=== PATIENT | male | born 1965 | race Caucasian/White ===

== ENCOUNTER 2017-04-02 08:01 | Emergency (ER) | payer OTHER ==
[2017-04-02 08:12] VITALS: TEMP 97.4; O2SAT 98
[2017-04-02] MEDS ORDERED: IBUPROFEN 200 MG TAB PO ONE (08:22)
[2017-04-02] MEDS ORDERED: SULFA/TRIMETH 800/160 (DS) TAB 1 EA TAB PO ONE (08:22)
--- NOTE | 2017-04-02 08:25 | ED.PDOC ---
History of Present Illness - General Chief Complaint: General Stated Complaint: needs medical release to go to senior living d/t wound Time Seen by Provider: 04/02/17 08:10 Source: patient Exam Limitations: no limitations - History of Present Illness Initial Comments: PT REPORTS TO ED FROM [facility]ILL[facility]URSING FOR MEDICAL CLEARANCE DUE TO RIGHT FOOT WOUND. PT REPORTS INJURING HIS RIGHT FOOT 3 WEEKS AGO AFTER DROPPING A TIRE ON HIS FOOT. PT REPORTS THAT HE SOUGHT MEDICAL ATTENTION BUT NOTHING WAS PRESCRIBED. SINCE THEN WOUND HAS FAILED TO HEAL. PT ALSO COMPLAINS OF ITCHY RASH ON TORSO AND EXTREMITIES FOR THE PAST WEEK THAT HAS NOT RESPONDED TO OTC HYDROCORTISONE CREAM. Timing/Duration: other - 3 WEEKS Severity: moderate Improving Factors: nothing Worsening Factors: nothing Associated Symptoms: rash Allergies/Adverse Reactions: Allergies Tetracycline Allergy (Verified 04/02/17 08:09) dimatap Allergy (Uncoded 04/02/17 08:09) Home Medications: Ambulatory Orders Methylprednisolone [Medrol Dose Husam] 4 mg PO DAILY #1 pack 04/02/17 Sulfamethoxazole-Trimethoprim [Bactrim Ds 800-160 mg] 2 tab PO BID 10 Days #40 tab 04/02/17 Review of Systems - Review of Systems Constitutional: Denies: chills, fever, malaise EENTM: Denies: nose congestion, throat pain Respiratory: Denies: cough, short of breath Cardiology: Denies: chest pain, palpitations Gastrointestinal/Abdominal: Denies: diarrhea, nausea, vomiting Genitourinary: Denies: dysuria, frequency Musculoskeletal: Denies: joint pain, joint swelling Skin: States: see HPI, lesions, rash Neurological: Denies: anxiety, numbness Endocrine: States: no symptoms reported Hematologic/Lymphatic: States: no symptoms reported Past Medical History (General) - Patient Medical History Hx Seizures: No Hx Stroke: No Hx Dementia: No Hx Asthma: No Hx of COPD: No Hx Cardiac Disorders: No Hx Congestive Heart Failure: No Hx Pacemaker: No Hx Hypertension: No Hx Thyroid Disease: No Hx Diabetes: No Hx Gastroesophageal Reflux: No Hx Renal Disease: No Hx Cancer: No Hx of HIV: No Hx Hepatitis C: No Hx MRSA: No Surgical History: no surgical history - Vaccination History Hx Tetanus, Diphtheria Vaccination: Yes Hx Influenza Vaccination: No Hx Pneumococcal Vaccination: No - Social History Hx Tobacco Use: Yes Hx Alcohol Use: No Hx Substance Use: No Hx Substance Use Treatment: No Hx Depression: No - Female History Patient : No Family Medical History - Family History Mother Family History: Unknown Physical Exam - Physical Exam General Appearance: Alert, Comfortable, No apparent distress, Well Groomed, Well Hydrated, Well Nourished, Other - HANDCUFFED TO BED IN [employer] C[employer] Eye Exam: bilateral normal Ears, Nose, Throat: hearing grossly normal Neck: full range of motion, supple Respiratory: no respiratory distress Extremity: no pedal edema, no calf tenderness, other - ULCERATED LESION MEASURING APROXIMATELY 0.5CM X 2CM LOCATED AT THE MEDIAL ASPECT OF THE RIGHT FOOT OVER THE 1ST METATARSAL BONE. Neurologic: alert, normal mood/affect, oriented x 3 Skin Exam: normal color, rash - ERYTHEMATOUS URTICARIAL LESIONS LOCATED ON TORSO , UPPER THIGHS AND PROXIMAL ARMS. Lymphatic: no adenopathy Progress - EKG/XRAY/CT XRAY: FOOT Xray Comments: NO SIGN OF OSTEOMYELITIS. OSTEOARTHRITIS NOTED PER RAD. Departure - Departure Clinical Impression: Rash Foot ulcer, right Qualifiers: Non-pressure ulcer stage: limited to breakdown of skin Qualified Code(s): L97.511 - Non-pressure chronic ulcer of other part of right foot limited to breakdown of skin Time of Disposition: 09:07 Disposition: Penitentiary Condition: Good Departure Forms: ED Discharge - Pt. Copy, Patient Portal Self Enrollment Instructions: DI for Diabetic Foot Ulcer, DI for Rash Referrals: GUIDO SEBASTIAN FNP [Primary Care Provider] - 1-2 Weeks Prescriptions: Methylprednisolone [Medrol Dose Husam] 4 mg PO DAILY #1 pack Sulfamethoxazole-Trimethoprim [Bactrim Ds 800-160 mg] 2 tab PO BID 10 Days #40 tab Home Medications: Ambulatory Orders Methylprednisolone [Medrol Dose Husam] 4 mg PO DAILY #1 pack 04/02/17 Sulfamethoxazole-Trimethoprim [Bactrim Ds 800-160 mg] 2 tab PO BID 10 Days #40 tab 04/02/17
--- NOTE | 2017-04-02 09:03 | RAD ---
EXAM DESCRIPTION: Right foot, 3 views CLINICAL HISTORY: Open wound. Assess for underlying osteomyelitis FINDINGS/ IMPRESSION: Cutaneous and subcutaneous swelling/edema medially with an ulceration adjacent to the first metatarsal. No focal demineralization or erosion to diagnose osteomyelitis Mild osteoarthritis metatarsal phalangeal joint great toe Electronically signed by: Gianni Brooks MD 04/02/2017 9:02 AM [facility]
[2017-04-02 09:18] VITALS: BP 142/87
== END 2017-04-02 09:18 ==
LOC: ER 08:01
DX: Z02.89 Encounter for other administrative examinations (principal); L97.511 Non-pressure chronic ulcer of other part of right foot limited to breakdown of skin; R21 Rash and other nonspecific skin eruption; Z87.891 Personal history of nicotine dependence; Z88.8 Allergy status to other drugs, medicaments and biological substances

== ENCOUNTER 2017-05-16 15:16 | Inpatient (IN) | payer SELFPAY ==
[2017-05-16] MEDS ORDERED: SODIUM CHLORIDE 0.9% (FLUSH) 10 ML SYG IV PRN ×2 (16:31→19:19)
[2017-05-16] MEDS ORDERED: KETOROLAC TROMETHAMINE INJ 30 MG/ML VIAL IV ONE (16:32)
[2017-05-16] MEDS ORDERED: VANCOMYCIN HCL INJ 1,000 MG, VANCOMYCIN HCL INJ 500 MG in SODIUM CHLORIDE 0.9% 250ML 25... IVPB ONE (16:32)
[2017-05-16] MEDS ORDERED: HYDROcodone 10MG/APAP 325MG 1 EA TAB PO ONE (16:33)
--- NOTE | 2017-05-16 16:48 | RAD ---
EXAM DESCRIPTION: Tibia/Fibula,Left CLINICAL HISTORY: 52 years Male, soft tissue infection, r/o osteo COMPARISON: None. FINDINGS: Two views of the left leg demonstrate the tibia and fibula are intact. No soft tissue foreign body or evidence of fracture or deformity or destructive process seen. No evidence of soft tissue gas or cortical destruction or periosteal new bone formation is noted. IMPRESSION: Normal left leg two views Electronically signed by: Gianni Fernandez MD 05/16/2017 4:47 PM [facility]
[2017-05-16] MEDS ORDERED: VANCOMYCIN HCL INJ 1,000 MG VIAL IVPB ONE (16:55)
[2017-05-16] MEDS ORDERED: VANCOMYCIN HCL INJ 500 MG VIAL ONE (16:55)
--- NOTE | 2017-05-16 16:55 | ED.PDOC ---
History of Present Illness - General Chief Complaint: Lower Extremity Injury Stated Complaint: left leg wound Time Seen by Provider: 05/16/17 15:44 Source: patient, family - History of Present Illness Initial Comments: PT PRESENTS TO THE ED WITH COMPLAINT OF LLE PAIN, SWELLING FOR THE PAST 2 WEEKS AFTER INJURING LEG WHILE WORKING. PT REPORTS THAT SYMPTOMS HAVE PROGRESSIVELY GOTTEN WORSE SINCE THEN. Occurred: other - 2WEEKS Pain - Lower Extremity: severe: Left Richards Method of Injury: other Improving Factors: immobilization Worsening Factors: movement Allergies/Adverse Reactions: Allergies Tetracycline Allergy (Verified 04/02/17 08:09) dimatap Allergy (Uncoded 04/02/17 08:09) Home Medications: Ambulatory Orders Methylprednisolone [Medrol Dose Husam] 4 mg PO DAILY #1 pack 04/02/17 Sulfamethoxazole-Trimethoprim [Bactrim Ds 800-160 mg] 2 tab PO BID 10 Days #40 tab 04/02/17 Review of Systems - Review of Systems Constitutional: Denies: chills, fever EENTM: Denies: nose congestion, throat pain Respiratory: Denies: cough, short of breath Cardiology: Denies: chest pain, syncope Gastrointestinal/Abdominal: Denies: abdominal pain, nausea, vomiting Genitourinary: Denies: frequency, hematuria Musculoskeletal: Denies: joint pain, joint swelling Skin: States: change in color, lesions. Denies: dryness Neurological: Denies: headache, numbness Endocrine: States: no symptoms reported Hematologic/Lymphatic: States: no symptoms reported Past Medical History (General) - Patient Medical History Hx Seizures: No Hx Stroke: No Hx Dementia: No Hx Asthma: No Hx of COPD: No Hx Cardiac Disorders: No Hx Congestive Heart Failure: No Hx Pacemaker: No Hx Hypertension: No Hx Thyroid Disease: No Hx Diabetes: No Hx Gastroesophageal Reflux: No Hx Renal Disease: No Hx Cancer: No Hx of HIV: No Hx Hepatitis C: No Hx MRSA: No Surgical History: no surgical history - Vaccination History Hx Tetanus, Diphtheria Vaccination: Yes - 2016 Hx Influenza Vaccination: No Hx Pneumococcal Vaccination: No - Social History Hx Tobacco Use: Yes Hx Alcohol Use: No Hx Substance Use: No Hx Substance Use Treatment: No Hx Depression: No - Female History Patient : No Family Medical History - Family History Mother Family History: Unknown Physical Exam - Physical Exam General Appearance: Alert, Comfortable, No apparent distress, Well Developed, Well Groomed, Well Hydrated Eyes, Ears, Nose, Throat: normal ENT inspection Neck: normal inspection Thigh/Hip: normal inspection, non-tender Leg: bone tenderness, pain, soft tissue tenderness, swelling, other - 3 ULCERATED LESIONS WITH SEROUS AND PURULENT DRAINAGE, LARGE AREA OF SURROUNDING ERYTHEMA AND TENDERNESS Knee: normal inspection, no evidence of injury Ankle: normal inspection, no evidence of injury Foot: normal inspection, no evidence of injury Neuro/Tendon: normal sensation, normal motor functions, normal tendon functions Mental Status: alert, oriented x 3 Skin: normal color, warm/dry Departure - Departure Clinical Impression: Cellulitis of left anterior lower leg, Abscess of left lower extremity Time of Disposition: 17:14 Disposition: Admit Patient Condition: Fair Departure Forms: ED Discharge - Pt. Copy, Patient Portal Self Enrollment Instructions: DI for Leg Pain Home Medications: Ambulatory Orders Methylprednisolone [Medrol Dose Husam] 4 mg PO DAILY #1 pack 04/02/17 Sulfamethoxazole-Trimethoprim [Bactrim Ds 800-160 mg] 2 tab PO BID 10 Days #40 tab 04/02/17 Decision To Admit - Decistion To Admit Decision to Admit Reason: Admit from ER Decision to Admit Date: 05/16/17 - CASE DISCUSSED WITH REYNALDO MACKAY WHO AGREES TO ADMIT PATIENT Decision to Admit Time: 17:15
[2017-05-16] MEDS ORDERED: SODIUM CHLORIDE 0.9% 250ML 250 ML ONE (16:56)
--- NOTE | 2017-05-16 17:53 | HP ---
SUPERVISING PHYSICIAN: José Miguel Durbin MD CHIEF COMPLAINT: Left lower leg pain with swelling and drainage. HISTORY OF PRESENT ILLNESS: This is a 52-year-old, male patient who came to the Emergency Room today due to left lower extremity pain and swelling for the last two weeks. He injured his legs while working and said that a dumpster fell and hit his lower leg. He cleaned the wound well and in the last few days, it has started swelling and draining pus-like liquid. He said it had really hurt and decided he would come to the Emergency Room. In the Emergency Room, a tib-fib x -ray was done and showed a normal left leg, two views. His lab was done. WBC 11,200 with hemoglobin 13.9 and hematocrit 41.6. Electrolytes were basically within normal limits. Blood cultures were done as well as a wound culture. His vital signs were stable. He was given vancomycin in the Emergency Room as well as hydrocodone and some Toradol. I was called for admission to the hospital. PAST MEDICAL HISTORY: None. PAST SURGICAL HISTORY: None. OUTPATIENT MEDICATIONS: None. ALLERGIES: TETRACYCLINE, DIMETAPP. SOCIAL HISTORY: He has a previous history of smoking. He now only smokes about 6 cigarettes daily. He is trying to quit at this time. He denies any ETOH or illicit drug use. He is . 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 OUTPATIENT MEDICATIONS: Per the EMR and awaiting verification. REVIEW OF SYSTEMS: GENERAL: Positive for low grade fever. Negative for fatigue or weight changes. HEENT: Negative for sinus symptoms, ear pain, vision changes or sore throat. RESPIRATORY: Negative for wheezing, coughing or shortness of breath. CARDIAC: Negative for chest pain, palpitations or tachycardia. GASTROINTESTINAL: Negative for nausea, vomiting, diarrhea, constipation or abdominal pain. GENITOURINARY: Negative for hematuria, dysuria or polyuria. SKIN: As per history of present illness. NEUROLOGIC: Negative for headache, dizziness or seizures. PHYSICAL EXAMINATION: VITAL SIGNS: Temperature 98.2. Pulse rate 79. Blood pressure 147/90. Respiratory rate 18. O2 sat 100% on room air. GENERAL: This is a 52-year-old male patient who is lying in his hospital bed. He is in no acute distress. HEENT: Normocephalic, atraumatic. Pupils are equal and reactive. Oropharynx is clear. NECK: Supple without mass. RESPIRATORY: Clear to auscultation bilaterally. CHEST: There is equal rise and fall of the chest with inspiration and expiration. CARDIOVASCULAR: Regular rate and rhythm. ABDOMEN: Soft, nondistended, nontender. Bowel sounds are positive. EXTREMITIES: He has an area of erythema and edema to his left gonzalez area that is approximately 8 cm in diameter. There are three open areas approximately 1 to 1.5 cm each and there appears to be tunneling between the open areas. It is draining pustular drainage. It is very tender to palpation. Bilateral pedal pulses are palpable at +2. NEUROLOGIC: Awake, alert and oriented times three. LABORATORY: As per the history of present illness plus C-reactive protein of 2 and ESR of 30. Blood cultures and wound cultures are pending. All other labs and films have been reviewed via the EMR. ASSESSMENT: 1. Cellulitis of the left lower extremity with elevated ESR and elevated CRP as well as elevated white blood cell count. 2. History of smoking, attempting to quit at this time. PLAN: We will admit the patient to the hospital. He was started on vancomycin in the Emergency Room and I will continue with that. I have ordered wound care as well as some lab in the morning. I will put him on Align probiotics. He will have Protonix for ulcer prophylaxis and Lovenox for DVT prophylaxis. We will monitor the cultures and target treatment as we get those results. I have elevated his foot. I have consulted Dr. Bob for in the morning to evaluate the wound and possible debridement. Otherwise, we will continue to monitor the patient closely and follow as needed. Dr. Durbin is the collaborating physician and available for consultation. #[id number] [facility]
[2017-05-16] MEDS ORDERED: ENOXAPARIN SODIUM 40 MG/0.4 ML SYG SUBCU SCH (19:30)
[2017-05-16] MEDS ORDERED: PANTOPRAZOLE SODIUM IV 40 MG VIAL IV SCH (19:30)
[2017-05-16] MEDS ORDERED: IV SET AND CAP CHANGE INJ INJ SCH (19:30)
[2017-05-16] MEDS ORDERED: ENOXAPARIN SODIUM 40 MG/0.4 ML SYG SUBCU ONE (20:29)
[2017-05-16] MEDS: SODIUM CHLORIDE 0.9% (FLUSH) 10 ML SYG IV SCH (21:07)
[2017-05-17] MEDS: HYDROcodone 10MG/APAP 325MG 1 EA TAB PO PRN ×2 (06:23→12:56)
[2017-05-17] MEDS ORDERED: VANCOMYCIN PER PHARMACY INJ SCH (07:00)
[2017-05-17] MEDS: SODIUM CHLORIDE 0.9% (FLUSH) 10 ML SYG IV SCH ×2 (10:03→20:47)
[2017-05-17] MEDS: BIFIDOBACTERIUM INFANTIS 4 MG CAP PO SCH ×2 (10:03→20:39)
[2017-05-17] MEDS ORDERED: SODIUM CHLORIDE 0.9% 250ML 250 ML ONE ×2 (10:05→20:32)
[2017-05-17] MEDS ORDERED: VANCOMYCIN HCL INJ 1,000 MG VIAL IVPB ONE ×2 (10:06→20:32)
[2017-05-17] MEDS: VANCOMYCIN HCL INJ 1,000 MG in SODIUM CHLORIDE 0.9% 250ML 250 ML IVPB SCH ×2 (10:56→22:27)
--- NOTE | 2017-05-17 11:31 | CONS ---
DATE OF CONSULTATION: 05/17/17 REFERRING PHYSICIAN: Hospitalist Service HISTORY OF PRESENT ILLNESS: The patient is a 52-year-old male who presented to the Emergency Room for a wound on his left leg that has been present for probably 2 weeks. He injured his leg when a dumpster fell and hit his lower leg. He cleaned it well, but in the last few days, there has been increased swelling and purulent drainage. In the Emergency Room, tib-fib x-ray was done and showed a normal left leg, two views. White count was 11,200, hemoglobin 13. Electrolytes were unremarkable. Cultures were taken. He was admitted and I have been asked to assist with his care. PAST MEDICAL HISTORY: Unremarkable. PAST SURGICAL HISTORY: None. CURRENT MEDICATIONS: He takes on medications on a routine basis. ALLERGIES: TETRACYCLINE, DIMETAPP. SOCIAL HISTORY: The patient smokes minimally. He denies alcohol or illicit drug use. He said he has been clean and sober for some time. The patient is . 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 REVIEW OF SYSTEMS: At the time of admission, he complained of a low grade fever , but he is afebrile now. He had no other significant symptoms other than pain in the left leg. PHYSICAL EXAMINATION: VITAL SIGNS: The patient is currently afebrile. His pulse is in the 80s and 90s. Blood pressure 146/approximately 90. O2 saturation 98% to 100% on room air. GENERAL: He is awake, alert and in moderate distress with his wound being cleaned. HEENT: Sclerae nonicteric. Mucous membranes moist. NECK: Without adenopathy. BACK: Without CVA tenderness. CHEST: Equal breath sounds bilaterally. ABDOMEN: Soft and benign. EXTREMITIES: The left lower leg has an open wound with moderate amount of bloody drainage mid-leg anteriorly. There is some surrounding erythema, but no significant edema. There is no crepitus, no fluctuance, but it is quite tender. LABORATORY: Lab this morning revealed white count 10,500 with 73% neutrophils, hemoglobin 14, platelet count 315. Chemistries this morning reveal potassium 4.3, creatinine 0.75. Liver functions within normal limits. Wound culture is growing gram positive cocci. Blood cultures are negative at this point. Review of the tib-fib x-ray reveals normal left leg. ASSESSMENT: 1. Cellulitis of the left leg secondary to injury to the skin and subcutaneous tissues, growing gram positive cocci. RECOMMENDATION: Begin showers with Hibiclens. Continue other wound care. Continue the vancomycin awaiting final culture results. The patient is to keep it elevated as much as possible. #[phone] [facility]
[2017-05-17] MEDS: CHLORHEXIDINE GLUC 4% 15ML 45 ML, WATER FOR IRRIGATION 1,000 ML TOP SCH ×2 (12:55)
[2017-05-17] MEDS: PANTOPRAZOLE SODIUM TAB 40 MG PO SCH (16:46)
--- NOTE | 2017-05-17 17:41 | PN ---
DATE: 05/17/17 SUPERVISING PHYSICIAN: José Miguel Durbin M.D. SUBJECTIVE: The patient is sitting up in his bed. He has no complaints of shortness of breath, nausea, vomiting, diarrhea. Continues to have pain in his left lower leg, but he has it elevated up on a pillow. He has no complaints as far as pain. OBJECTIVE: VITAL SIGNS: He is afebrile, heart rate 94, blood pressure 146/99, respiratory rate 18, O2 sat is 100% on room air. RESPIRATORY: Essentially clear to auscultation bilaterally. CARDIAC: Regular rate and rhythm. GASTROINTESTINAL: Abdomen is soft, nondistended, non-tender. Bowel sounds are positive. EXTREMITIES: The left lower leg has an open wound that has some bloody drainage. It is much less edematous since yesterday. There still continues to be some erythema and it is tender to palpation. LABORATORY: WBCs have improved to 10.5 with hemoglobin 14.1, hematocrit 42. CMP is basically within normal limits. Preliminary wound culture shows gram positive cocci and his preliminary blood cultures are negative to date. All other labs and films have been reviewed via the EMR. ASSESSMENT: 1. Cellulitis of the left lower extremity secondary to a traumatic injury with an elevated ESR and CRP with preliminary wound cultures growing gram positive cocci on Zosyn. 2. History of smoking, attempting to quit at this time. PLAN: We will continue present supportive care. I will hold off on any labs for in the morning. Dr. Bob has seen the patient and is currently treating him. We will monitor blood cultures and wound cultures to target therapy. We will continue to monitor the patient and followup as needed. Dr. Durbin is the collaborating physician available for consultation. #[id number] [facility]
[2017-05-17] MEDS: ENOXAPARIN SODIUM 40 MG/0.4 ML SYG SUBCU SCH (20:40)
[2017-05-18] MEDS: HYDROcodone 10MG/APAP 325MG 1 EA TAB PO PRN (06:09)
[2017-05-18] MEDS: PANTOPRAZOLE SODIUM TAB 40 MG PO SCH (06:10)
[2017-05-18] MEDS ORDERED: SODIUM CHLORIDE 0.9% 250ML 250 ML ONE (08:05)
[2017-05-18] MEDS ORDERED: VANCOMYCIN HCL INJ 1,000 MG VIAL IVPB ONE (08:06)
[2017-05-18] MEDS: SODIUM CHLORIDE 0.9% (FLUSH) 10 ML SYG IV SCH ×2 (08:26→21:31)
[2017-05-18] MEDS: BIFIDOBACTERIUM INFANTIS 4 MG CAP PO SCH ×2 (08:26→21:31)
[2017-05-18] MEDS: CHLORHEXIDINE GLUC 4% 15ML 45 ML, WATER FOR IRRIGATION 1,000 ML TOP SCH ×2 (08:33)
[2017-05-18] MEDS: VANCOMYCIN HCL INJ 1,000 MG in SODIUM CHLORIDE 0.9% 250ML 250 ML IVPB SCH (10:54)
--- NOTE | 2017-05-18 20:38 | PN ---
DATE: 05/18/17 SUPERVISING PHYSICIAN: José Miguel Durbin M.D. SUBJECTIVE: The patient is resting in bed with his left leg elevated. Says he feels much better. The area is not quite as tender and sore. He has had no nausea, vomiting, diarrhea or any other complaints. He is tolerating wound management with Hibiclens as well as ongoing antibiotic therapy to include vancomycin initially. OBJECTIVE: VITAL SIGNS: Temperature 97.8, pulse 81, blood pressure 131/73, respirations 18, satting 99% on room air. I's and O's show a negative balance of 1520 with 1280 in, 2800 out. Weight is 70.3 kg. CHEST: Lungs are clear to auscultation bilaterally. HEART: Regular rate and rhythm. ABDOMEN: Soft, non- tender. Positive bowel sounds. EXTREMITIES: Left lower leg shows an area overlying the tibia that is open with some serosanguinous drainage with minimal erythema around the wound, but continues to be tender on palpation. NEUROLOGIC : He is alert and oriented times three. LABORATORY: No laboratory was repeated as they have been within normal limits for the last 24 hours. ASSESSMENT: 1. Cellulitis of the left lower extremity secondary to a traumatic injury with an elevated ESR and CRP with preliminary wound cultures growing gram positive cocci felt to be possibly Streptococcus pneumoniae with final culture results pending with the patient having been on Zosyn since admission showing good response. 2. History of smoking, attempting to quit and encouraged to do so at this time. PLAN: Will continue to defer wound management to Dr. Bob. After discussing with Dr. Bob, he is anticipating discharge tomorrow therefore we will transition the patient from Zosyn to Augmentin with anticipation of discharging tomorrow. Will plan to repeat a CRP in the morning, otherwise his other labs have been fairly normal. Will hold off on repeating any further labs besides the CRP. Until discharge, will continue to monitor and treat appropriately. #[id number] [facility]
[2017-05-18] MEDS: ENOXAPARIN SODIUM 40 MG/0.4 ML SYG SUBCU SCH (21:30)
[2017-05-18] MEDS: AMOXICILLIN & POT CLAVULANATE 875 MG TAB PO SCH (21:31)
[2017-05-19] MEDS: HYDROcodone 10MG/APAP 325MG 1 EA TAB PO PRN (01:49)
[2017-05-19 06:25] VITALS: TEMP 98.4
[2017-05-19] MEDS: PANTOPRAZOLE SODIUM TAB 40 MG PO SCH (06:30)
[2017-05-19] MEDS: AMOXICILLIN & POT CLAVULANATE 875 MG TAB PO SCH (09:32)
[2017-05-19] MEDS: SODIUM CHLORIDE 0.9% (FLUSH) 10 ML SYG IV SCH (09:32)
[2017-05-19] MEDS: BIFIDOBACTERIUM INFANTIS 4 MG CAP PO SCH (09:32)
[2017-05-19] MEDS: CHLORHEXIDINE GLUC 4% 15ML 45 ML, WATER FOR IRRIGATION 1,000 ML TOP SCH ×2 (09:33)
[2017-05-19 10:41] VITALS: BP 145/90
[2017-05-19 11:29] VITALS: O2SAT 97
--- NOTE | 2017-05-20 09:30 | DS ---
SUPERVISING PHYSICIAN: José Miguel Durbin MD DISCHARGE DIAGNOSIS: 1. Cellulitis of the left lower extremity secondary to a traumatic injury with an elevated ESR and CRP on admission with final culture results showing a group A Streptococcus with the patient showing good response initially with antibiotic coverage with vancomycin and transitioned to Augmentin prior to discharge with no evidence of osteomyelitis on radiographic studies. 2. History of smoking, continues to be encouraged to stop with cessation assistance. REASON FOR HOSPITALIZATION: Mr. Christian is a 52-year-old, male patient who came to the Emergency Room on 05/16/17 due to left lower extremity pain and swelling that had been present for two weeks previous to admission. He injured his legs while working and said that a dumpster filled with concrete fell and hit his lower leg. He cleaned the wound well and in the last few days prior to admission, it had started swelling and draining pus-like liquid. He said it had really hurt and decided he would come to the Emergency Room. In the Emergency Room, a tib-fib x-ray was done and showed a normal left leg, two views. His lab showed leukocytosis at 11,200. Wound cultures were completed and then he was started on vancomycin and admitted to the Medical/Surgical Floor. LABORATORY: White count on admission showed leukocytosis at11,200 with hemoglobin 13.9, hematocrit 41.6, platelet count 322,000. Differential did show a slight left shift. At discharge, his white count had normalized to 10, 500 as well as platelet count was within normal limits at 315,000. Differential showed an improvement and he did have an elevated ESR on admission that was 30. Chemistries showed normal electrolytes on admission and at discharge, BUN 15, creatinine 0.75. Liver functions all within normal limits. C-reactive protein was elevated at 2.0. MICROBIOLOGY: Wound culture of the left leg wound showed a group A strep. His blood cultures were negative after 3 days. RADIOLOGY: He had a tib-fib x-ray in the Emergency Room before admission and per radiologic interpretation was normal left leg, two views. HOSPITAL COURSE: Mr. Christian was admitted on as noted above for left lower leg cellulitis and infection. Dr. Bob was consulted to assist with wound management. He was maintained on vancomycin and showed good response to his therapy. He was up ambulatory, taking showers prior to discharge. He was no longer showing any leukocytosis, was without any fever and was clinically stable. He was then transitioned to Augmentin to continue with outpatient treatment plan. PLAN: Mr. Christian was discharged on 05/19/17 with instructions to followup at [facility] with Dr. Cantu in the next week and sooner if he was having any changes in the wound or any fevers. He was to have only shower, no tub bath, and to cleanse his leg as many as needed, at least 2 or 3 times a day in the shower and to keep covered with clean dressings. He was told to return to the hospital for any concerning symptoms. Diet at discharge was regular diet as tolerated. He was to increase his activity as tolerated. DISCHARGE MEDICATIONS: 1. Augmentin 875 mg q.12h. for 10 days. 2. Align 4 mg twice daily for 30 days. He was to resume all other medications as prior to admission. Condition at discharge was stable and improved. #[id number] [facility]
== END 2017-05-19 15:15 | disposition home or self-care (01) | DRG 603 ==
LOC: ER 15:16 → MS 17:52
PROVIDERS: ADMIT Nurse Practitioner Acute Care; ATTEND Nurse Practitioner Family
DX: L03.116 Cellulitis of left lower limb (principal); L02.416 Cutaneous abscess of left lower limb; S81.802A Unspecified open wound, left lower leg, initial encounter; W20.8XXA Other cause of strike by thrown, projected or falling object, initial encounter; R70.0 Elevated erythrocyte sedimentation rate; B95.0 Streptococcus, group A, as the cause of diseases classified elsewhere; F17.210 Nicotine dependence, cigarettes, uncomplicated; Z88.8 Allergy status to other drugs, medicaments and biological substances; Z88.3 Allergy status to other anti-infective agents; Y92.9 Unspecified place or not applicable; Y99.9 Unspecified external cause status

== ENCOUNTER → 2017-09-09 | Outpatient (CLI) | payer OTHER | LOC: LAB.O 15:14 | DX: R03.0 Elevated blood-pressure reading, without diagnosis of hypertension (principal) ==

== ENCOUNTER 2017-09-25 15:50 | Emergency (ER) | payer OTHER ==
[2017-09-25 16:37] VITALS: O2SAT 98
[2017-09-25] MEDS ORDERED: ONDANSETRON ODT 8 MG TAB SL ONE (16:57)
[2017-09-25] MEDS ORDERED: SODIUM CHLORIDE 0.9% 1000ML 1,000 ML IVS ONE ×2 (16:57→19:02)
--- NOTE | 2017-09-25 17:38 | RAD ---
EXAM DESCRIPTION: Abdomen Series CLINICAL HISTORY: 52 years Male ,diarrhea 2 days COMPARISON: None. TECHNIQUE: Frontal view chest x-ray and two views of the abdomen. FINDINGS: The cardiomediastinal silhouette appears unremarkable. No consolidating infiltrates or pleural effusions. No free air is identified beneath the hemidiaphragms. No dilated loops of bowel to suggest obstruction. IMPRESSION: No acute plain film abnormality is identified. Electronically signed by: Kiley Carson MD 09/25/2017 5:36 PM CDT
[2017-09-25] MEDS ORDERED: LOPERAMIDE CAP 2 MG CAP PO ONE (19:02)
--- NOTE | 2017-09-25 19:24 | ED.PDOC ---
History of Present Illness - General Chief Complaint: GI Problem Stated Complaint: abdominal pain diarrhea Time Seen by Provider: 09/25/17 16:56 Source: patient Exam Limitations: no limitations - History of Present Illness Initial Comments: The patient is a 52-year-old male presenting to the emergency room secondary to poorly for 48 hours of diarrhea and some abdominal cramping. He has had some mild nausea but no real vomiting. No fever. No point abdominal pain. No significant back pain. No sore throat or runny nose. No altered mental status or headache. There is been no blood in the stool. Timing/Duration: 24 hours Severity: moderate Improving Factors: nothing Worsening Factors: nothing Associated Symptoms: denies symptoms Allergies/Adverse Reactions: Allergies Tetracycline Allergy (Verified 09/25/17 16:37) dimatap Allergy (Uncoded 09/25/17 16:37) Home Medications: Ambulatory Orders Multiple Vitamins W/ Minerals [Multivitamin Adults 50+] 1 tab PO DAILY 05/16/17 Amoxicillin & Pot Clavulanate [Augmentin Tab] 875 mg PO Q12H #20 tab 05/19/17 Bifidobacterium Infantis [Align] 4 mg PO BID cap 05/19/17 Ondansetron [Zofran Odt] 4 mg PO Q4H PRN #10 tab 09/25/17 Review of Systems - Review of Systems Constitutional: States: no symptoms reported EENTM: States: no symptoms reported Respiratory: States: no symptoms reported Cardiology: States: no symptoms reported Gastrointestinal/Abdominal: States: see HPI Genitourinary: States: no symptoms reported Musculoskeletal: States: no symptoms reported Skin: States: no symptoms reported Neurological: States: no symptoms reported Endocrine: States: no symptoms reported All other Systems: No Change from Baseline Past Medical History (General) - Patient Medical History Hx Seizures: No Hx Stroke: No Hx Dementia: No Hx Asthma: No Hx of COPD: No Hx Cardiac Disorders: No Hx Congestive Heart Failure: No Hx Pacemaker: No Hx Hypertension: Yes Hx Thyroid Disease: No Hx Diabetes: No Hx Gastroesophageal Reflux: No Hx Renal Disease: No Hx Cancer: No Hx of HIV: No Hx Hepatitis C: No Hx MRSA: No Surgical History: no surgical history - Vaccination History Hx Tetanus, Diphtheria Vaccination: Yes - 2016 Hx Influenza Vaccination: No Hx Pneumococcal Vaccination: No - Social History Hx Tobacco Use: No - quit one week ago Hx Alcohol Use: No Hx Substance Use: No Hx Substance Use Treatment: No Hx Depression: No Hx Physical Abuse: No Hx Emotional Abuse: No - Female History Patient : No Family Medical History - Family History Mother Family History: Unknown Physical Exam - Physical Exam General Appearance: Alert, Comfortable, No apparent distress Eye Exam: bilateral normal Ears, Nose, Throat: hearing grossly normal, normal ENT inspection, normal pharynx Neck: full range of motion, supple Respiratory: lungs clear, normal breath sounds, no respiratory distress, no accessory muscle use Cardiovascular/Chest: normal peripheral pulses, regular rate, rhythm, no edema Peripheral Pulses: radial,right: 2+, radial,left: 2+ Gastrointestinal/Abdominal: soft, other - mild diffuse discomfort to palpation but no point tenderness or rebound or peritoneal signs. No palpable masses. 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, alert, normal mood/affect, oriented x 3 Skin Exam: normal color Comments: Vital Signs - 24 hr 09/25/17 09/25/17 16:15 17:15 Temperature 98.5 F Pulse Rate [ 80 76 pulse ox] Respiratory 20 20 Rate Blood Pressure 138/80 134/83 [Left Arm] O2 Sat by Pulse 98 98 Oximetry Progress - Progress Progress: 09/25/17 19:23 Laboratory Tests 09/25/17 09/25/17 09/25/17 16:20 17:08 17:08 WBC 8.9 RBC 5.12 Hgb 14.7 Hct 43.0 MCV 84.1 MCH 28.7 MCHC 34.1 RDW 14.1 Plt Count 177 MPV 8.7 Absolute Neuts (auto) 6.40 Absolute Lymphs (auto) 1.10 Absolute Monos (auto) 1.10 H Absolute Eos (auto) 0.20 Absolute Basos (auto) 0.00 Neutrophils % 72.5 Lymphocytes % 12.8 L Monocytes % 12.4 H Eosinophils % 1.9 Basophils % 0.4 Sodium 136 Potassium 3.9 Chloride 103 Carbon Dioxide 27 Anion Gap 9.9 L BUN 9 Creatinine 0.93 BUN/Creatinine Ratio 9.7 L Random Glucose 103 Serum Osmolality 270.9 L Lactic Acid Calcium 8.4 Magnesium 1.8 Total Bilirubin 0.6 AST 23 ALT 34 Alkaline Phosphatase 66 Serum Total Protein 6.8 Albumin 3.4 Globulin 3.4 Albumin/Globulin Ratio 1.0 L Amylase 34 Lipase 22 Urine Color Yellow Urine Appearance Clear Urine pH 6.5 Ur Specific Pierson 1.025 Urine Protein Trace Urine Glucose (UA) 100 H Urine Ketones Negative Urine Blood Trace-intact H Urine Nitrite Negative Urine Bilirubin Negative Urine Urobilinogen 0.2 Ur Leukocyte Esterase Negative Urine RBC 1-3 Urine WBC 0-1 Ur Epithelial Cells 0-1 Urine Bacteria 0 09/25/17 17:08 WBC RBC Hgb Hct MCV MCH MCHC RDW Plt Count MPV Absolute Neuts (auto) Absolute Lymphs (auto) Absolute Monos (auto) Absolute Eos (auto) Absolute Basos (auto) Neutrophils % Lymphocytes % Monocytes % Eosinophils % Basophils % Sodium Potassium Chloride Carbon Dioxide Anion Gap BUN Creatinine BUN/Creatinine Ratio Random Glucose Serum Osmolality Lactic Acid 0.6 Calcium Magnesium Total Bilirubin AST ALT Alkaline Phosphatase Serum Total Protein Albumin Globulin Albumin/Globulin Ratio Amylase Lipase Urine Color Urine Appearance Urine pH Ur Specific Pierson Urine Protein Urine Glucose (UA) Urine Ketones Urine Blood Urine Nitrite Urine Bilirubin Urine Urobilinogen Ur Leukocyte Esterase Urine RBC Urine WBC Ur Epithelial Cells Urine Bacteria acute abdominal series appears benign. The patient's 52-year-old male presenting with a gastroenteritis and colitis that may be due to mild food poisoning. He has received a couple liters of IV fluids for mild dehydration. He has been given a dose of Imodium. He needs to eat a bland diet and keep himself well hydrated. For now antibiotics will be avoided. Laboratory work and x-rays are reassuring. He needs to follow-up with his primary care doctor next week. ER warnings were given for any significant worsening. Departure - Departure Clinical Impression: Gastroenteritis Disposition: Discharge to Home or Self Care Condition: Fair Departure Forms: ED Discharge - Pt. Copy, Patient Portal Self Enrollment Instructions: DI for Diarrhea and Traveler's Diarrhea -- Adult Diet: bland diet Activity: increase activity as tolerated Referrals: Nicolasa Canut MD [Primary Care Provider] - 1-2 Weeks Prescriptions: Ondansetron [Zofran Odt] 4 mg PO Q4H PRN #10 tab PRN Reason: Vomiting Home Medications: Ambulatory Orders Multiple Vitamins W/ Minerals [Multivitamin Adults 50+] 1 tab PO DAILY 05/16/17 Amoxicillin & Pot Clavulanate [Augmentin Tab] 875 mg PO Q12H #20 tab 05/19/17 Bifidobacterium Infantis [Align] 4 mg PO BID cap 05/19/17 Ondansetron [Zofran Odt] 4 mg PO Q4H PRN #10 tab 09/25/17 Additional Instructions: The patient's 52-year-old male presenting with a gastroenteritis and colitis that may be due to mild food poisoning. He has received a couple liters of IV fluids for mild dehydration. He has been given a dose of Imodium. He needs to eat a bland diet and keep himself well hydrated. For now antibiotics will be avoided. Laboratory work and x-rays are reassuring. He needs to follow-up with his primary care doctor next week. ER warnings were given for any significant worsening.
[2017-09-25 21:04] VITALS: BP 142/89; TEMP 97.5
== END 2017-09-25 20:50 | disposition home or self-care (01) ==
LOC: ER 15:50
DX: K52.9 Noninfective gastroenteritis and colitis, unspecified (principal); E86.0 Dehydration; I10 Essential (primary) hypertension; Z87.891 Personal history of nicotine dependence
CPT/HCPCS: 36415; 74019; 80053; 81001; 82150; 83605; 83690; 83735; 85025; J7030

== ENCOUNTER 2017-12-31 08:00 | Emergency (ER) | payer SELFPAY ==
[2017-12-31 08:10] VITALS: BP 150/76
[2017-12-31] MEDS ORDERED: LIDOCAINE 1% W/ EPINEPHRINE 20 ML VIAL INJ ONE (08:34)
[2017-12-31] MEDS ORDERED: KETOROLAC TROMETHAMINE INJ 30 MG/ML VIAL IM ONE (08:34)
[2017-12-31] MEDS ORDERED: IODOFORM 1/4 INCH 1 EA BTTL TOP ONE (08:34)
--- NOTE | 2017-12-31 08:37 | ED.PDOC ---
History of Present Illness - General Chief Complaint: Skin/Abrasion/Tear Stated Complaint: Skin irritation, L shoulder discomfort Time Seen by Provider: 12/31/17 08:27 Source: patient Exam Limitations: no limitations - History of Present Illness Initial Comments: Patient presents with buttocks pain for several days. He believes he might have an abscess. It is painful to sit. Better without weight on it. Has had a previous episode of an abscess on the buttocks. He does not thing that he has had MRSA. He also complains of pain in the left scapular, non-radiating, aching in nature, for two days. It is worse with movement, especially elevation. No previous episodes. No recent trauma. He has been doing a lot of work at home that requires lifting above the head. No other complaints. Timing/Duration: other - "several days" Severity: moderate Improving Factors: rest Worsening Factors: movement Associated Symptoms: denies symptoms Allergies/Adverse Reactions: Allergies Tetracycline Adverse Reaction (Verified 12/31/17 08:10) Unknown Increased urination dimatap Adverse Reaction (Uncoded 12/31/17 08:10) Unknown Increased urination Home Medications: Ambulatory Orders Multiple Vitamins W/ Minerals [Multivitamin Adults 50+] 1 tab PO DAILY 05/16/17 Sulfa/Trimeth 800/160 (Ds) Tab [Bactrim DS] 1 tablet PO BID #20 tab 12/31/17 Tramadol HCl 50 mg PO Q4HR #20 tab 12/31/17 Review of Systems - Review of Systems Constitutional: States: no symptoms reported EENTM: States: no symptoms reported Respiratory: States: no symptoms reported Cardiology: States: no symptoms reported Gastrointestinal/Abdominal: States: no symptoms reported Genitourinary: States: no symptoms reported Musculoskeletal: States: see HPI Skin: States: see HPI Neurological: States: no symptoms reported Endocrine: States: no symptoms reported Hematologic/Lymphatic: States: no symptoms reported Past Medical History (General) - Patient Medical History Hx Seizures: No Hx Stroke: No Hx Dementia: No Hx Asthma: No Hx of COPD: No Hx Cardiac Disorders: No Hx Congestive Heart Failure: No Hx Pacemaker: No Hx Hypertension: Yes Hx Thyroid Disease: No Hx Diabetes: No Hx Gastroesophageal Reflux: No Hx Renal Disease: No Hx Cancer: No Hx of HIV: No Hx Hepatitis C: No Hx MRSA: No Surgical History: no surgical history - Vaccination History Hx Tetanus, Diphtheria Vaccination: Yes - 2016 Hx Influenza Vaccination: No Hx Pneumococcal Vaccination: No - Social History Hx Tobacco Use: Yes Hx Alcohol Use: No Hx Substance Use: No Hx Substance Use Treatment: No Hx Depression: No Hx Physical Abuse: No Hx Emotional Abuse: No - Female History Patient : No Family Medical History - Family History Mother Family History: Unknown Physical Exam - Physical Exam General Appearance: Alert Eye Exam: bilateral normal Ears, Nose, Throat: normal ENT inspection Neck: non-tender, full range of motion, supple Respiratory: chest non-tender, lungs clear, normal breath sounds Cardiovascular/Chest: normal peripheral pulses, regular rate, rhythm Gastrointestinal/Abdominal: normal bowel sounds, non tender, soft Back Exam: normal inspection, no CVA tenderness, no vertebral tenderness Extremity: other - Pain with elevation or abduction of the left shoulder. Negative Beer Can sign. Internal rotaion with adduction against resistance does not cause pain. Abduction with the elbow flexed at 90 degrees with resistance to pronation does not cause pain. Retraction of the left arm with attempted protraction against resistance in the fully extended position does not cause pain. These findings argue against rotator cuff involvemnet. Left scapula is NTTP. 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 TPP. Marked surrounding blanching eyrthema. Lymphatic: no adenopathy Progress - Progress Progress: 12/31/17 09:09 Abscess area was prepped and draped in a sterile fashion. 5 cc of lidocaine with epinephrine was used to gain excellent local anesthesia. #11 blade used to make a 1 cm incision at the apex of the abscess. A moderate amount of purulence was drained. Culture was taken and sent. Loculations broken up with curved hemostats from a suture kit. More purulence was drained. Abscess was packed with 1/4 inch strip gauze. Area was clean dry and hemostatic upon completion. patient given Toradol 30 mg IM x one to help both with the abscess pain and the left shoulder pain. Radiographs of the left shoulder showed an unstable articulation of 2-3mm of the distal left clavicle and acromion process. Patient was referred to Dr. Mendes with orthopedics. Pain medications provided. He was given an RX for Bactrim DX bid x ten days. Care instructions given. E.D. warnings given. Questions were elicited and answered. Patient voiced understanding and agreement with the plan. Procedures - Incision and Drainage #1 Procedure and Prep: betadine prep, sterile drapes applied, sterile dressings applied, gauze wick placed, irrigated, wound culture collected, pus drained Blade Size: 11 Procedure Comments: Patient tolerate procedure well. Moderate amount of purulence drained. Departure - Departure Clinical Impression: Abscess, Acromioclavicular (AC) joint injury, Tobacco abuse counseling Disposition: Discharge to Home or Self Care Condition: Good Departure Forms: ED Discharge - Pt. Copy, Patient Portal Self Enrollment Instructions: DI for Abrasion Diet: resume usual diet Activity: increase activity as tolerated Referrals: Manohar Mendes MD [Active Staff] - 1-2 Weeks Prescriptions: Tramadol HCl 50 mg PO Q4HR #20 tab Sulfa/Trimeth 800/160 (Ds) Tab [Bactrim DS] 1 tablet PO BID #20 tab Home Medications: Ambulatory Orders Multiple Vitamins W/ Minerals [Multivitamin Adults 50+] 1 tab PO DAILY 05/16/17 Sulfa/Trimeth 800/160 (Ds) Tab [Bactrim DS] 1 tablet PO BID #20 tab 12/31/17 Tramadol HCl 50 mg PO Q4HR #20 tab 12/31/17 Additional Instructions: See a doctor in 4 days to recheck the abscess wound. See Dr. Mendes in the next week about your shoulder. You may use a sling if it helps with the pain. Take the medications as prescribed. Return to the E.R. for worsening pain or fever. Stop smoking. Review the provided literature.
--- NOTE | 2017-12-31 08:55 | RAD ---
EXAM DESCRIPTION: Left shoulder, 2 views CLINICAL HISTORY: left scapular pain FINDINGS/ IMPRESSION: Mild osteoarthritis of the acromioclavicular joint. Mild instability with superior positioning of the distal clavicle relative to the acromion by 2-3 mm. No fracture. No lytic or blastic bony lesion No advanced glenohumeral arthrosis or focal osteochondral lesion Electronically signed by: Gianni Brooks MD 12/31/2017 8:54 AM CDT
[2017-12-31 09:39] VITALS: TEMP 97; O2SAT 99
== END 2017-12-31 09:38 | disposition home or self-care (01) ==
LOC: ER 08:00
DX: L02.31 Cutaneous abscess of buttock (principal); S49.92XA Unspecified injury of left shoulder and upper arm, initial encounter; I10 Essential (primary) hypertension; F17.200 Nicotine dependence, unspecified, uncomplicated; Z88.3 Allergy status to other anti-infective agents; Z88.8 Allergy status to other drugs, medicaments and biological substances; X50.0XXA Overexertion from strenuous movement or load, initial encounter; Y92.009 Unspecified place in unspecified non-institutional (private) residence as the place of occurrence of the external cause
CPT/HCPCS: 73030; 87070; 87077; 87186; 87205; 99406; J1885

== ENCOUNTER 2020-01-29 23:35 | Emergency (ER) | payer SELFPAY ==
[2020-01-29 23:49] VITALS: O2SAT 97
--- NOTE | 2020-01-30 00:39 | RAD ---
EXAM DESCRIPTION: Chest,1 View CLINICAL HISTORY: 54 years Male, cough, fever COMPARISON: None TECHNIQUE: Single AP chest radiograph. FINDINGS: Query subtle patchy right basilar opacity. No pneumothorax or pleural effusion. Normal cardiomediastinal contour. Normal osseous structures. IMPRESSION: 1. Subtle right basilar opacity concerning for infection. Electronically signed by: Jayce Sutherland MD 01/30/2020 12:37 AM CDT
--- NOTE | 2020-01-30 00:45 | ED.PDOC ---
History of Present Illness - General Chief Complaint: General Time Seen by Provider: 01/30/20 00:20 Source: patient Exam Limitations: no limitations, clinical condition Additional Information: PRESENTS WITH 5 DAY HX OF PROGRESSIVELY SEVERE COUGH, SORE THROAT, INTENSE MYALGIAS AND FEVER. SUSPECTED COVID EXPOSURE 7-10 DAYS AGO. DENIES SIGNIFICANT SHORTAGE OF BREATH EXCEPT DURING COUGHING PAROXYSMS. NO OTHER HEALTH PROBLEMS OTHER THAN SMOKING WHICH HE IS CONCERNED ABOUT. - History of Present Illness Improving Factors: nothing Worsening Factors: nothing Associated Symptoms: cough, fever/chills, muscle aches, sore throat Allergies/Adverse Reactions: Allergies Tetracycline Adverse Reaction (Verified 12/31/17 08:10) Unknown Increased urination dimatap Adverse Reaction (Uncoded 12/31/17 08:10) Unknown Increased urination Home Medications: Ambulatory Orders Multiple Vitamins W/ Minerals [Multivitamin Adults 50+] 1 tab PO DAILY 05/16/17 Azithromycin Tab [Zithromax] 250 mg PO DAILY #4 tab 01/30/20 Benzonatate Perles [Tessalon Perles] 200 mg PO TID PRN #30 cap 01/30/20 Review of Systems - Review of Systems Constitutional: States: see HPI EENTM: States: see HPI Respiratory: States: see HPI Cardiology: States: no symptoms reported Gastrointestinal/Abdominal: States: no symptoms reported Genitourinary: States: no symptoms reported Musculoskeletal: States: see HPI Skin: States: no symptoms reported Past Medical History (General) - Patient Medical History Hx Seizures: No Hx Stroke: No Hx Dementia: No Hx Asthma: No Hx of COPD: No Hx Cardiac Disorders: No Hx Congestive Heart Failure: No Hx Pacemaker: No Hx Hypertension: No Hx Thyroid Disease: No Hx Diabetes: No Hx Gastroesophageal Reflux: No Hx Renal Disease: No Hx Cancer: No Hx of HIV: No Hx Hepatitis C: No Hx MRSA: No Surgical History: no surgical history - Vaccination History Hx Tetanus, Diphtheria Vaccination: Yes Hx Influenza Vaccination: No Hx Pneumococcal Vaccination: No - Social History Hx Tobacco Use: Yes - 2 a day Hx Chewing Tobacco Use: No Hx Alcohol Use: Yes Hx Substance Use: No Hx Substance Use Treatment: No Hx Depression: No Feels Threatened In Home Enviroment: No Feels Threatened In a Relationship: No Hx Physical Abuse: No Hx Emotional Abuse: No Hx Suspected Abuse: No - Female History Patient is a Female of Child Bearing Age (10 -59 yrs old): No Patient : No Family Medical History - Family History Mother Family History: Unknown Physical Exam - Physical Exam General Appearance: Alert, Well Developed, Well Hydrated, Well Nourished Neck: non-tender, supple, normal inspection Respiratory: chest non-tender, lungs clear, normal breath sounds, no respiratory distress, no accessory muscle use Cardiovascular/Chest: normal peripheral pulses, regular rate, rhythm, no edema, no gallop, no JVD, no murmur Gastrointestinal/Abdominal: normal bowel sounds, non tender, soft Extremity: normal range of motion, non-tender Skin Exam: normal color, warm/dry Lymphatic: no adenopathy Departure - Departure Clinical Impression: Atypical pneumonia Time of Disposition: 00:43 Disposition: Discharge to Home or Self Care Condition: Good Departure Forms: ED Discharge - Pt. Copy, Patient Portal Self Enrollment Instructions: Atypical Pneumonia (Mycoplasma and Viral) (DC), Coronavirus Disease 2019 (COVID-19) Prescriptions: Benzonatate Perles [Tessalon Perles] 200 mg PO TID PRN #30 cap PRN Reason: Cough Azithromycin Tab [Zithromax] 250 mg PO DAILY #4 tab Home Medications: Ambulatory Orders Multiple Vitamins W/ Minerals [Multivitamin Adults 50+] 1 tab PO DAILY 05/16/17 Azithromycin Tab [Zithromax] 250 mg PO DAILY #4 tab 01/30/20 Benzonatate Perles [Tessalon Perles] 200 mg PO TID PRN #30 cap 01/30/20
[2020-01-30] MEDS ORDERED: AZITHROMYCIN 250 MG TAB PO ONE (00:46)
[2020-01-30] MEDS ORDERED: BENZONATATE PERLES 100 MG CAP PO ONE (00:46)
[2020-01-30 00:53] VITALS: BP 144/96; TEMP 99.1
== END 2020-01-30 00:57 | disposition home or self-care (01) ==
LOC: ER 23:35
DX: J18.9 Pneumonia, unspecified organism (principal); F17.210 Nicotine dependence, cigarettes, uncomplicated; Z88.3 Allergy status to other anti-infective agents; Z88.8 Allergy status to other drugs, medicaments and biological substances; Z20.828 Contact with and (suspected) exposure to other viral communicable diseases
CPT/HCPCS: 71045; 85025; 87070; 87486; 87581; 87633; 87635; 87880; Q0144